=== PATIENT | female | born 1955 | race Caucasian/White ===

== ENCOUNTER 2018-11-04 06:43 | Day surgery (SDC) | payer MEDICARE, MEDICAID ==
[~2018-11-04] VITALS: Ht 167.6 cm; Wt 90.7 kg
[2018-11-04 07:42] LABS: BASOPHILS % 0.5 % (0.0-2.0); EOSINOPHILS % 2.5 % (0.0-5.0); HEMATOCRIT. 37.4 % (36.0-48.0); HEMOGLOBIN. 12.7 g/dL (12.0-16.0); LYMPHOCYTES % 17.9 % (20.0-50.0); MEAN CORPUSCULAR HEMOGLOBIN 30.1 pg (28.0-32.0); MEAN PLATELET VOLUME 8.1 fl (7.4-10.4); MONOCYTES % 8.6 % (2.0-8.0); NEUTROPHILS % 70.5 % (40.0-76.0); PLATELET 222 x1000/uL (130-400); RED CELL DISTRIBUTION WIDTH 13.9 % (11.6-14.6)
[2018-11-04 07:51] LABS: CHLORIDE 109 mEq/L (98-107)
[2018-11-04 08:01] LABS: CLARITY URINE TURBID (CLEAR); COLOR URINE AMBER (YELLOW); KETONES URINE NEGATIVE (NEGATIVE); LEUKOCYTE ESTERASE URINE 2+ (NEGATIVE); NITRITE URINE NEGATIVE (NEGATIVE); OCCULT BLOOD URINE 3+ (NEGATIVE); PROTEIN URINE 2+ (NEGATIVE); UROBILINOGEN URINE 0.2 E.U./dL (0.2-1.0)
[2018-11-04] MEDS ORDERED: VITA-340 PO (08:53)
[2018-11-04] MEDS ORDERED: CHOL500063 PO (08:53)
[2018-11-04] MEDS ORDERED: SIMV20TA6 PO (08:53)
[2018-11-04] MEDS ORDERED: TRAM150C25 PO (08:53)
[2018-11-04] MEDS ORDERED: MULT-1146 PO (08:53)
[2018-11-04] MEDS ORDERED: CITA40TA11 PO (08:53)
[2018-11-04] MEDS ORDERED: METF-414 PO (08:53)
[2018-11-04] MEDS ORDERED: AMLO10TA80 PO (08:53)
[2018-11-04] MEDS ORDERED: NITR100C PO (08:53)
[2018-11-04] MEDS ORDERED: GLIM2TAB2 PO (08:53)
[2018-11-04] MEDS ORDERED: DIVA500T51 PO (08:53)
[2018-11-04] MEDS ORDERED: BENA10TA12 PO (08:53)
[2018-11-04] MEDS ORDERED: EZET10TA13 PO (08:53)
[2018-11-04] MEDS ORDERED: ASPI-1393 PO (08:53)
[2018-11-04] MEDS ORDERED: OXYB5SYR2 PO (08:53)
[2018-11-04] MEDS ORDERED: IMIP50TA2 PO (08:53)
[2018-11-04] MEDS ORDERED: FENTANYL CITRATE/PF 50MCG/ML 2ML VIAL ONE (09:09)
[2018-11-04] MEDS ORDERED: PROPOFOL 200MG/20ML VIAL IV ONE (09:09)
[2018-11-04] MEDS ORDERED: GLYCOPYRROLATE 0.2 MG/ML 2ML VIAL ONE (09:10)
[2018-11-04] MEDS ORDERED: METOCLOPRAMIDE HCL 10MG/2ML VIAL ONE (09:10)
[2018-11-04] MEDS ORDERED: SUCCINYLCHOLINE CHLORIDE 200MG/10ML IV ONE (09:10)
[2018-11-04] MEDS ORDERED: ONDANSETRON HCL 4MG/2ML INJ ONE (09:10)
[2018-11-04] MEDS ORDERED: LIDOCAINE HCL/PF 1% 10 MG/ML 5ML VIAL ONE (09:10)
[2018-11-04] MEDS ORDERED: MIDAZOLAM HCL 2 MG/2 ML VIAL ONE (09:10)
[2018-11-04] MEDS ORDERED: GENTAMICIN SULF 40MG/ML 2ML VIAL ONE (09:18)
[2018-11-04] MEDS ORDERED: SODIUM CHLORIDE 0.9% 1,000 ML IV ONE (10:08)
[2018-11-04] MEDS ORDERED: HYDROMORPHONE HCL/PF 2MG/ML CPJ IV PRN (10:15)
[2018-11-04] MEDS ORDERED: MEPERIDINE HCL/PF 25MG/ML CPJ IV PRN (10:15)
[2018-11-04] MEDS ORDERED: ONDANSETRON HCL 4MG/2ML INJ IV PRN (10:15)
== END 2018-11-04 11:55 | disposition home or self-care (01) ==
LOC: OR 06:43
PROVIDERS: ATTEND Urology
DX: N20.1 Calculus of ureter (principal); E11.9 Type 2 diabetes mellitus without complications; I10 Essential (primary) hypertension; E78.00 Pure hypercholesterolemia, unspecified; F32.9 Major depressive disorder, single episode, unspecified; E66.01 Morbid (severe) obesity due to excess calories; Z85.3 Personal history of malignant neoplasm of breast; Z98.890 Other specified postprocedural states; Z87.891 Personal history of nicotine dependence; Z79.84 Long term (current) use of oral hypoglycemic drugs; Z79.899 Other long term (current) drug therapy; Z88.5 Allergy status to narcotic agent; Z68.32 Body mass index [BMI] 32.0-32.9, adult; Z79.82 Long term (current) use of aspirin
CPT/HCPCS: 36415; 52353; 74021; 80048; 81003; 82360; 82962; 85025; 87086; 88300; J0330; J1580; J2250; J2405; J2704; J2765; J3010; J3490